=== PATIENT | female | born 1980 | race Caucasian/White ===

== ENCOUNTER 2024-06-06 18:33 | Emergency (ER) | payer BC ==
[~2024-06-06] VITALS: Ht 162.6 cm; Wt 55.3 kg
[2024-06-06] MEDS ORDERED: PHENAZOPYRIDINE HCL 100 MG TABLET ONE (19:18)
[2024-06-06] MEDS: PHENAZOPYRIDINE HCL 100 MG TABLET PO ONE (19:22)
[2024-06-06 20:38] LABS: *BILIRUBIN,URIN NEGATIVE (NEGATIVE); *CLARITY,URINE CLEAR (CLEAR); *COLOR,URINE YELLOW (YELLOW); *KETONES,URINE 1+ (NEGATIVE); *PROTEIN,URINE NEGATIVE (NEGATIVE); *UROBILINOGEN,URINE 0.2 E.U./dl (NORMAL); LEUKOCYTE ESTERASE ,URINE NEGATIVE (NEGATIVE); NITRITE, URINE NEGATIVE (NEGATIVE); PH,URINE 5.5 (5.0-8.0); UGLUCOSE NEGATIVE (NEGATIVE)
[2024-06-06 20:39] LABS: *BLOOD, URINE TRACE (NEGATIVE)
[2024-06-06 20:40] LABS: *URINE HCG, QUAL NEGATIVE (NEGATIVE)
[2024-06-06 20:56] LABS: BACTERIA,URINE FEW /HPF (NONE SEEN); CALCIUM OXALATE CRYSTALS,UR FEW /HPF (NONE SEEN); RBC,URINE 0-3 /HPF (0-3); SQUAMOUS EPITHELIAL CELL,UR FEW /HPF (NONE SEEN); WBC,URINE 0-3 /HPF (0-3)
[2024-06-06] MEDS ORDERED: MORPHINE SULFATE 4 MG/1 ML DISP.SYRIN ONE (21:20)
[2024-06-06] MEDS ORDERED: ONDANSETRON 4 MG/2 ML VIAL ONE (21:20)
[2024-06-06] MEDS: ONDANSETRON 4 MG/2 ML VIAL IV ONE (21:35)
[2024-06-06] MEDS: MORPHINE SULFATE 2 MG/1 ML DISP.SYRIN IV ONE (21:36)
[2024-06-06 21:57] LABS: BASOPHILS % (AUTO) 0.5 % (0.0-2.0); EOSINOPHILS # (AUTO) 0.1 K/uL (0.0-0.7); EOSINOPHILS % (AUTO) 0.7 % (0.0-7.0); HEMATOCRIT 34.5 % (31.2-41.9); HEMOGLOBIN 11.6 g/dL (10.9-14.3); LYMPHOCYTES # (AUTO) 1.9 K/uL (0.8-4.8); LYMPHOCYTES % (AUTO) 22.3 % (20.5-51.5); MEAN CORPUSCULAR HGB CONC 34 g/dL (32.3-35.6); MEAN CORPUSCULAR VOLUME 89.1 fL (75.5-95.3); MONOCYTES # (AUTO) 0.8 K/uL (0.1-1.30); MONOCYTES % (AUTO) 9.4 % (0.0-11.0); NEUTROPHILS # (AUTO) 5.6 K/uL (1.8-8.9); NEUTROPHILS % (AUTO) 67.1 % (38.5-71.5); PLATELET COUNT (AUTO) 186 K/uL (179-408); RED BLOOD CELL COUNT(AUTO) 3.88 MIL/uL (3.63-4.92); RED CELL DISTRIBUTION WIDTH 13.5 % (12.3-17.7); WHITE BLOOD COUNT (AUTO) 8.4 K/uL (3.8-11.8)
[2024-06-06 22:00] LABS: DIFFERENTIAL COMMENT 1
[2024-06-06 22:07] LABS: CALCIUM 9.3 mg/dL (8.5-10.1); CREATININE 0.7 mg/dL (0.6-1.3); POTASSIUM 3.8 mmol/L (3.5-5.1)
[2024-06-06] MEDS ORDERED: HYDR-3980 PO (22:10)
[2024-06-06] MEDS ORDERED: TAMS-3 PO (22:10)
[2024-06-06] MEDS ORDERED: DOXY100C5 PO (22:10)
[2024-06-06 22:24] VITALS: BP 116/70; O2SAT 99
[2024-06-06 22:24] LABS: ALBUMIN 3.8 g/dL (3.4-5.0); BILIRUBIN,DIRECT 0.1 mg/dL (0.0-0.2); BILIRUBIN,TOTAL 0.4 mg/dL (0.2-1.0); TOTAL PROTEIN, SERUM 7.1 g/dL (6.4-8.2)
== END 2024-06-06 22:22 | disposition home or self-care (01) ==
LOC: ER 18:37
DX: N13.2 Hydronephrosis with renal and ureteral calculous obstruction (principal); R10.32 Left lower quadrant pain; E03.9 Hypothyroidism, unspecified
CPT/HCPCS: 99285; 74176; 96374; 96375; 80076; 80048; 81001; 84703; 83690; 85025; 36415; J2405; J2270; A4606; A4663